=== PATIENT | male | born 1980 | race Caucasian/White ===

== ENCOUNTER 2022-03-22 14:55 | Outpatient (CLI) | payer SELFPAY ==
[2022-03-22 15:59] LABS: Erythrocyte Sedimentation Rate 9 mm/hr (0-20)
== END 2022-03-22 14:56 | disposition home or self-care (01) ==
LOC: ANHLAB 14:57
PROVIDERS: PCP Nurse Practitioner; Visit Provider Plastic Surgery
DX: I77.6 Arteritis, unspecified (principal); Z13.0 Encounter for screening for diseases of the blood and blood-forming organs and certain disorders involving the immune mechanism; M25.561 Pain in right knee; M06.9 Rheumatoid arthritis, unspecified
CPT/HCPCS: 36415; 85652; 86038